=== PATIENT | male | born 1985 ===

== ENCOUNTER 2020-03-01 21:07 | Emergency (ER) | payer SELFPAY ==
--- NOTE | 2020-03-01 23:41 | ER ---
Nurse's Notes [facility] Name: Justin Garcia Age: 34 yrs Sex: Male : 1985 Arrival Date: 03/01/2020 Time: 21:10 Bed 14 Private MD: Diagnosis: Otitis media, unspecified, left ear Presentation: 03/01 21:20 Method Of Arrival: Ambulatory jb4 21:20 Chief complaint: Patient states: I have headache on the left side of my head that has jb4 been there for 7 days and has been getting worse. It radiates down to the left side of my neck. I have had one like this before in the past. Coronavirus screen: Client denies travel out of the [place] in the last 14 days. At this time, the client does not indicate any symptoms associated with coronavirus-19. Ebola Screen: No symptoms or risks identified at this time. Initial Sepsis Screen: Does the patient meet any 2 criteria? No. Patient's initial sepsis screen is negative. Does the patient have a suspected source of infection? No. Patient's initial sepsis screen is negative. Risk Assessment: Do you want to hurt yourself or someone else? Patient reports no desire to harm self or others. Onset of symptoms was February 23, 2020. Transition of care: patient was not received from another setting of care. 21:20 Acuity: RAKESH 4 jb4 Historical: - Allergies: 21:20 No Known Allergies; jb4 - Home Meds: 21:20 None [Active]; jb4 - PMHx: 21:20 None; jb4 - PSHx: 21:20 None; jb4 - Immunization history:: Adult Immunizations up to date. - Social history:: Smoking status: Patient reports the use of cigarette tobacco products, 7 cigarettes . Screenin:20 Abuse screen: Denies threats or abuse. Nutritional screening: No deficits noted. jb4 Tuberculosis screening: No symptoms or risk factors identified. Fall Risk None identified. Assessment: 21:20 General: Appears in no apparent distress. uncomfortable, Behavior is calm, cooperative, jb4 appropriate for age. Pain: Complains of pain in left side of head Pain radiates to left side of neck Pain currently is 5 out of 10 on a pain scale. Quality of pain is described as pulsating, Pain began 7 days ago Is continuous. Neuro: Level of Consciousness is awake, alert, obeys commands, Oriented to person, place, time, situation. Cardiovascular: Patient's skin is warm and dry. Respiratory: Airway is patent Respiratory effort is even, unlabored, Respiratory pattern is regular, symmetrical. GI: No signs and/or symptoms were reported involving the gastrointestinal system. : No signs and/or symptoms were reported regarding the genitourinary system. EENT: No signs and/or symptoms were reported regarding the EENT system. Derm: Skin is intact, Skin is pink, warm \T\ dry. Musculoskeletal: Circulation, motion, and sensation intact. Range of motion: intact in all extremities. 22:45 Reassessment: Patient and/or family updated on plan of care and expected duration. Pain jb4 level reassessed. Patient is alert, oriented x 3, equal unlabored respirations, skin warm/dry/pink. Pt is resting comfortably in bed with the lights off using his cell phone. no s/s of pain or distress noted. 23:45 Reassessment: Patient appears in no apparent distress at this time. Patient and/or jb4 family updated on plan of care and expected duration. Pain level reassessed. Patient is alert, oriented x 3, equal unlabored respirations, skin warm/dry/pink. Vital Signs: 21:20 BP 130 / 97; Pulse 66; Resp 16; Temp 98.7(O); Pulse Ox 100% on R/A; Weight 72.57 kg jb4 (R); Height 5 ft. 0 in. (152.40 cm) (R); Pain 5/10; 22:45 BP 113 / 69; Pulse 52; Resp 16; Pulse Ox 100% on R/A; jb4 21:20 Body Mass Index 31.25 (72.57 kg, 152.40 cm) jb4 ED Course: 21:10 Patient arrived in ED. cl3 21:19 Maggie Wilder [facility]NP-C [facility]. kb 21:19 Sami Turk MD is Attending Physician. kb 21:20 Arm band placed on right wrist. jb4 21:20 Patient has correct armband on for positive identification. Bed in low position. Call jb4 light in reach. Side rails up X 1. Pulse ox on. NIBP on. 22:00 Levon, Bryon, RN is Primary Nurse. jb4 22:02 Triage completed. 4 22:06 CT Head Brain wo Cont In Process Unspecified. EDMS 23:45 No provider procedures requiring assistance completed. Patient did not have IV access [facility] during this emergency room visit. Administered Medications: No medications were administered Outcome: 23:40 Discharge ordered by . milla 23:45 Discharged to home ambulatory. [facility] 23:45 Condition: stable 23:45 Discharge instructions given to patient, Instructed on discharge instructions, follow up and referral plans. medication usage, Demonstrated understanding of instructions, follow-up care, medications, Prescriptions given X 1. 23:58 Patient left the ED. [facility] Signatures: Dispatcher [employer] EDMS Maggie Wilder, DEYANIRA-C PRESCRIPTION BENEFIT SPECIALIST-Bryon Boyer RN RN mukesh Nathan Nunez cl3 Corrections: (The following items were deleted from the chart) 22:03 22:00 Chief complaint: Patient states: I have headache on the left side of my head that [facility] has been there for 7 days and has been getting worse. It radiates down to the left side of my neck. I have had one like this before in the past. [facility] 22: 22:00 Coronavirus screen: Client denies travel out of the [place] in the last 14 days. At [facility] this time, the client does not indicate any symptoms associated with coronavirus-19. [facility] 22: 22:00 Ebola Screen: No symptoms or risks identified at this time. [place] [id number] 22: 22:00 Initial Sepsis Screen: Does the patient meet any 2 criteria? No. Patient's [facility] initial sepsis screen is negative. Does the patient have a suspected source of infection? No. Patient's initial sepsis screen is negative. [facility] 22: 22:00 Risk Assessment: Do you want to hurt yourself or someone else? Patient reports no [facility] desire to harm self or others. [facility] : 22:00 Onset of symptoms was February 23, 2020 [place] [id number] : 22:00 Transition of care: patient was not received from another setting of care. [place] [id number] : 22:00 Method Of Arrival: Ambulatory [place] [address] 22: 22:00 BP 130 / 97; Pulse 66bpm; Resp 16bpm; Pulse Ox 100% RA; Temp 98.7F Oral; 72.57 kg jb4 Reported; Height 5 ft. 0 in. Reported; BMI: 31.2; Pain 5/10; jb4 22:03 22:00 Acuity: RAKESH 4 jb4 jb4
--- NOTE | 2020-03-01 23:41 | EDPHYS ---
Physician Documentation [facility] Name: Justin Garcia Age: 34 yrs Sex: Male : 1985 Arrival Date: 03/01/2020 Time: 21:10 Bed 14 Private MD: [facility] Physician Sami Turk HPI: 03/01 23:34 This 34 yrs old Male presents to ER via Ambulatory with complaints of Headache. kb 23:39 The patient complains of pain to the left temporal area, left ear and left base of the kb skull. The patient describes the headache as constant, throbbing. Onset: The symptoms/episode began/occurred 7 day(s) ago. Associated signs and symptoms: The patient has no apparent associated signs or symptoms. Severity of symptoms: At its worst the pain was moderate, in the emergency department the pain is unchanged. Headache History: Denies prior headaches. The symptoms are alleviated by nothing. the symptoms are aggravated by palpation. The patient has not experienced similar symptoms in the past. The patient has not recently seen a physician. Pt reports pain to left side of head that started 7 days ago. Denies any other symptoms. . Historical: - Allergies: 21:20 No Known Allergies; jb4 - Home Meds: 21:20 None [Active]; jb4 - PMHx: 21:20 None; jb4 - PSHx: 21:20 None; jb4 - Immunization history:: Adult Immunizations up to date. - Social history:: Smoking status: Patient reports the use of cigarette tobacco products, 7 cigarettes . ROS: 23:28 Constitutional: Negative for fever, chills, and weight loss, ENT: Negative for injury, kb pain, and discharge, Neck: Negative for injury, pain, and swelling, Cardiovascular: Negative for chest pain, palpitations, and edema, Respiratory: Negative for shortness of breath, cough, wheezing, and pleuritic chest pain, Abdomen/GI: Negative for abdominal pain, nausea, vomiting, diarrhea, and constipation, Back: Negative for injury and pain, MS/Extremity: Negative for injury and deformity, Skin: Negative for injury, rash, and discoloration. 23:28 Neuro: Positive for headache, Negative for altered mental status, dizziness, gait disturbance, hearing loss, loss of consciousness, numbness, seizure activity, speech changes, syncope, near syncope, tingling, tinnitus, tremor, visual changes, weakness. Exam: 23:31 Constitutional: This is a well developed, well nourished patient who is awake, alert, kb and in no acute distress. Head/Face: Normocephalic, atraumatic. Neck: Trachea midline, no thyromegaly or masses palpated, and no cervical lymphadenopathy. Supple, full range of motion without nuchal rigidity, or vertebral point tenderness. No Meningismus. Chest/axilla: Normal chest wall appearance and motion. Nontender with no deformity. No lesions are appreciated. Cardiovascular: Regular rate and rhythm with a normal S1 and S2. No gallops, murmurs, or rubs. Normal PMI, no JVD. No pulse deficits. Respiratory: Lungs have equal breath sounds bilaterally, clear to auscultation and percussion. No rales, rhonchi or wheezes noted. No increased work of breathing, no retractions or nasal flaring. Abdomen/GI: Soft, non-tender, with normal bowel sounds. No distension or tympany. No guarding or rebound. No evidence of tenderness throughout. Back: No spinal tenderness. No costovertebral tenderness. Full range of motion. Skin: Warm, dry with normal turgor. Normal color with no rashes, no lesions, and no evidence of cellulitis. MS/ Extremity: Pulses equal, no cyanosis. Neurovascular intact. Full, normal range of motion. Neuro: Awake and alert, GCS 15, oriented to person, place, time, and situation. Cranial nerves II-XII grossly intact. Motor strength 5/5 in all extremities. Sensory grossly intact. Cerebellar exam normal. Normal gait. 23:31 Head/face: Noted is no obvious of injury or deformity except tenderness, that is mild, of the left ear and left base of the skull. 23:31 ENT: Ear canal(s): are normal, TM's: bulging, on the left, erythema, that is moderate, on the left, fluid levels, on the left, Nose: is normal. Vital Signs: 21:20 BP 130 / 97; Pulse 66; Resp 16; Temp 98.7(O); Pulse Ox 100% on R/A; Weight 72.57 kg jb4 (R); Height 5 ft. 0 in. (152.40 cm) (R); Pain 5/10; 22:45 BP 113 / 69; Pulse 52; Resp 16; Pulse Ox 100% on R/A; jb4 21:20 Body Mass Index 31.25 (72.57 kg, 152.40 cm) jb4 MDM: 21:20 Patient medically screened. kb 23:28 Data reviewed: vital signs, nurses notes. Data interpreted: Pulse oximetry: on room air kb is 100 %. Interpretation: normal. Counseling: I had a detailed discussion with the patient and/or guardian regarding: the historical points, exam findings, and any diagnostic results supporting the discharge/admit diagnosis, radiology results, the need for outpatient follow up, a family practitioner, to return to the emergency department if symptoms worsen or persist or if there are any questions or concerns that arise at home. 03/01 21:51 Order name: CT Head Brain wo Cont kb Administered Medications: No medications were administered Disposition: 03/01/20 23:40 Discharged to Home. Impression: Otitis media, unspecified, left ear. - Condition is Stable. - Discharge Instructions: Otitis Media, Adult, [id number]. - Prescriptions for Amoxicillin 875 mg Oral Tablet - take 1 tablet by ORAL route every 12 hours for 10 days; 20 tablet. - Medication Reconciliation Form, Thank You Letter, Antibiotic Education, Prescription Opioid Use form. - Follow up: Emergency Department; When: As needed; Reason: Worsening of condition. Follow up: Private Physician; When: 2 - 3 days; Reason: Recheck today's complaints, Continuance of care, Re-evaluation by your physician. Addendum: 03/03/2020 08:48 Co-signature as Attending Physician, Sami Turk MD I agree with the assessment and c reeves plan of care. Signatures: Dispatcher [employer] EDMaggie Arteaga, LOCOMOTIVE ENGINEER DIESEL-C LOCOMOTIVE ENGINEER DIESEL-Ckb Sami Turk MD MD cha Bryson, James, RN RN jb4 Corrections: (The following items were deleted from the chart) 03/01 23:34 23:31 ENT: External ear(s): are unremarkable, Ear canal(s): are normal, TM's: bulging, kb on the left, erythema, that is moderate, on the left, fluid levels, on the left, Nose: is normal, kb 23:58 23:40 03/01/2020 23:40 Discharged to Home. Impression: Otitis media, unspecified, left jb4 ear. Condition is Stable. Forms are Medication Reconciliation Form, Thank You Letter, Antibiotic Education, Prescription Opioid Use. Follow up: Emergency Department; When: As needed; Reason: Worsening of condition. Follow up: Private Physician; When: 2 - 3 days; Reason: Recheck today's complaints, Continuance of care, Re-evaluation by your physician. kb
--- NOTE | 2020-03-04 12:38 | RAD REPORT ---
EXAM DESCRIPTION: CT - Head Brain Wo Cont - 03/01/2020 10:06 pm CLINICAL HISTORY: Posterior left parietal headache. Evaluate for mastoiditis. COMPARISON: None. TECHNIQUE: CT scan of the brain was performed without IV contrast. This exam was performed accordi ng to our departmental dose-optimization program, which includes automated exposure control, adjustme nt of the mA and/or kV according to patient size and/or use of iterative reconstruction technique. FINDINGS: The ventricles, cisterns, and sulci are age-appropriate. No evidence of acute infarction, intracranial hemorrhage, extra-axial fluid collection, or midline shift. No air-fluid levels are seen in the paranasal sinuses to suggest acute sinusitis. The mastoid air cells are also clear. No depres sed skull fracture. IMPRESSION: 1. No acute intracranial hemorrhage. 2. Sinuses and mastoid air cells are clear. Electronically signed by: Misael Javed MD 03/01/2020 10:21 PM CDT Due to temporary technical issues with the PACS/Fluency reporting system, reports are being signed by the in house radiologist without review as a courtesy to ensure prompt reporting. The interpreting r adiologist is fully responsible for the content of the report.
[2020-03-05 17:24] VITALS: TEMP 98.7; O2SAT 100
[2020-03-05 17:25] VITALS: BP 113/69
== END 2020-03-01 23:58 | disposition home or self-care (01) ==
LOC: ER 21:07
DX: H66.92 Otitis media, unspecified, left ear (principal); F17.210 Nicotine dependence, cigarettes, uncomplicated
CPT/HCPCS: 70450; 99283

== ENCOUNTER 2020-03-07 20:48 | Emergency (ER) | payer SELFPAY ==
[2020-03-07 21:55] LABS: Urine Blood NEGATIVE (NEG); Urine Glucose NEGATIVE (NEG); Urine Protein NEGATIVE (NEG); Urine Specific Gravity <1.005 (1.005-1.030)
[2020-03-07 22:02] LABS: Absolute Lymphocytes (CBC) 3.7 K/uL (0.7-4.9); Basophils % 1.5 % (0-1.3); Hematocrit 46.5 % (39.6-49.0); Lymphocytes % 38.3 % (15.3-44.8); MPV 8.1 fL (7.6-11.3); RBC Red Blood Cell Count 5.05 M/uL (4.33-5.43)
[2020-03-07] MEDS ORDERED: KETOROLAC 30 MG/ML INJ ONE (22:02)
[2020-03-07 22:03] LABS: Urine Bacteria NONE SEEN /HPF (NONE SEEN); Urine Culture Reflex Order NOT NEEDED; Urine RBC NONE SEEN /HPF (NONE SEEN)
[2020-03-07 22:16] LABS: Bilirubin Direct 0.1 mg/dL (0-0.2); Bilirubin Total 0.5 mg/dL (0.2-1.0); Potassium 3.8 mmol/L (3.5-5.1); Protein, Total 7.4 g/dL (6.4-8.2)
--- NOTE | 2020-03-07 22:46 | ER ---
Nurse's Notes [facility] Name: Justin Garcia Age: 34 yrs Sex: Male : 1985 Arrival Date: 03/07/2020 Time: 20:50 Bed 6 Private MD: Diagnosis: Low back pain Presentation: 03/07 20:59 Chief complaint: Patient states: Left lower back pain for 3 months, worse sine ll1 yesterday. No known falls or trauma. No dysuria or fever. Coronavirus screen: Client denies travel out of the [place] in the last 14 days. At this time, the client does not indicate any symptoms associated with coronavirus-19. Ebola Screen: Patient denies travel to an Ebola-affected area in the 21 days before illness onset. Initial Sepsis Screen: Does the patient meet any 2 criteria? No. Patient's initial sepsis screen is negative. Risk Assessment: Do you want to hurt yourself or someone else? Patient reports no desire to harm self or others. Onset of symptoms was December 06, 2019. 20:59 Method Of Arrival: Ambulatory ll1 20:59 Acuity: RAKESH 4 ll1 21:57 Initial Sepsis Screen: Does the patient have a suspected source of infection? No. wh Patient's initial sepsis screen is negative. Historical: - Allergies: 21:01 No Known Allergies; ll1 - PSHx: 21:01 None; ll1 - Immunization history:: Flu vaccine is not up to date. - Social history:: Smoking status: Patient reports the use of cigarette tobacco products, smokes one-half pack cigarettes per day, Patient/guardian denies using alcohol, street drugs. Screenin:57 Abuse screen: Denies threats or abuse. Denies injuries from another. Nutritional screening: No deficits noted. Tuberculosis screening: No symptoms or risk factors identified. Fall Risk None identified. Assessment: 21:55 General: Appears in no apparent distress. Behavior is calm, cooperative, appropriate for age. Pain: Complains of pain in left mid back and left low back Pain does not radiate. Pain currently is 6 out of 10 on a pain scale. Quality of pain is described as sharp, Pain began 3 months ago Is episodic. Neuro: Level of Consciousness is awake, alert, obeys commands, Oriented to person, place, time, situation, Appropriate for age. Cardiovascular: Capillary refill < 3 seconds. Respiratory: Airway is patent Respiratory effort is even, unlabored, Respiratory pattern is regular, symmetrical. GI: Abdomen is flat, non-distended. : No signs and/or symptoms were reported regarding the genitourinary system. EENT: No signs and/or symptoms were reported regarding the EENT system. Derm: Skin is intact, is healthy with good turgor, Skin is pink, warm \T\ dry. normal. Musculoskeletal: Circulation, motion, and sensation intact. 22:55 Reassessment: Patient appears in no apparent distress at this time. No changes from previously documented assessment. Patient and/or family updated on plan of care and expected duration. Pain level reassessed. Patient is alert, oriented x 3, equal unlabored respirations, skin warm/dry/pink. Patient states feeling better. Patient states symptoms have improved. Vital Signs: 20:59 BP 113 / 81; Pulse 80; Resp 17; Temp 98.8; Pulse Ox 100% ; Pain 8/10; ll1 21:57 BP 111 / 75; Pulse 62; Resp 18; Pulse Ox 100% on R/A; wh 22:45 BP 114 / 80; Pulse 64; Resp 18; Pulse Ox 99% on R/A; ED Course: 20:50 Patient arrived in ED. cl3 21:00 Triage completed. ll1 21:01 Arm band placed on Patient placed in an exam room, on a stretcher. ll1 21:21 Magaly Powell is Primary Nurse. 21:27 Sami Harmon PA is PHCP. cp 21:27 Atif Wang MD is Attending Physician. cp 21:40 Inserted saline lock: 20 gauge in right antecubital area, using aseptic technique. Blood collected. 21:57 Patient has correct armband on for positive identification. Bed in low position. Call light in reach. Side rails up X 1. Pulse ox on. NIBP on. 22:15 CT Stone Protocol In Process Unspecified. EDMS 22:59 No provider procedures requiring assistance completed. IV discontinued, intact, bleeding controlled, No redness/swelling at site. Administered Medications: 21:55 Drug: TORadol - Ketorolac 15 mg Route: IVP; Site: right antecubital; 22:59 Follow up: Response: No adverse reaction; Pain is decreased Outcome: 22:46 Discharge ordered by . allie 22:59 Discharged to home ambulatory. 22:59 Condition: stable 22:59 Discharge instructions given to patient, Instructed on discharge instructions, follow up and referral plans. no drinking with medication, no driving heavy equipment, medication usage, POC Demonstrated understanding of instructions, follow-up care, medications, POC Prescriptions given X 3. 23:00 Patient left the ED. Signatures: Dispatcher [employer] EDMS Sami Harmon PA PA cp Habalo, Winsy Nathan Nunez cl3 Murali Nunez, RN RN ll1
--- NOTE | 2020-03-07 22:46 | EDPHYS ---
Physician Documentation [facility] Name: Justin Garcia Age: 34 yrs Sex: Male : 1985 Arrival Date: 03/07/2020 Time: 20:50 Bed 6 Private MD: ED Physician Atif Wang HPI: 03/07 21:54 This 34 yrs old Male presents to ER via Ambulatory with complaints of Back Pain. cp 21:54 The patient complains of pain in the left low back and left mid back. The pain does not cp radiate. Onset: The symptoms/episode began/occurred yesterday. Associated signs and symptoms: Pertinent negatives: diarrhea, dysuria, fever, vomiting. Severity of pain: in the emergency department the pain is unchanged despite home interventions. Historical: - Allergies: 21:01 No Known Allergies; ll1 - PSHx: 21:01 None; ll1 - Immunization history:: Flu vaccine is not up to date. - Social history:: Smoking status: Patient reports the use of cigarette tobacco products, smokes one-half pack cigarettes per day, Patient/guardian denies using alcohol, street drugs. ROS: 21:55 Eyes: Negative for injury, pain, redness, and discharge. cp 21:55 Constitutional: Negative for body aches, chills, fever, poor PO intake. 21:55 Neck: Negative for pain with movement, pain at rest, stiffness. 21:55 Cardiovascular: Negative for chest pain. 21:55 Respiratory: Negative for cough. 21:55 Abdomen/GI: Negative for abdominal pain, nausea, vomiting, and diarrhea. 21:55 Back: Positive for flank pain, on the left, Negative for injury or acute deformity, decreased range of motion. 21:55 : Negative for urinary symptoms, pelvic pain, testicular pain 21:55 Neuro: Negative for altered mental status, headache, weakness. 21:55 All other systems are negative. Exam: 21:56 Head/Face: Normocephalic, atraumatic. cp 21:56 Constitutional: The patient appears in no acute distress, alert, awake, non-toxic, well developed, well nourished. 21:56 Eyes: Periorbital structures: appear normal, Conjunctiva: normal, no exudate, no injection, Sclera: no appreciated abnormality, Lids and lashes: appear normal, bilaterally. 21:56 ENT: External ear(s): are unremarkable, Nose: is normal, Posterior pharynx: Airway: no evidence of obstruction, patent. 21:56 Neck: ROM/movement: is normal, is supple, without pain, no range of motions limitations. 21:56 Chest/axilla: Inspection: normal. 21:56 Cardiovascular: Rate: normal, Rhythm: regular. 21:56 Respiratory: the patient does not display signs of respiratory distress, Respirations: normal, no use of accessory muscles, no retractions, labored breathing, is not present, Breath sounds: are clear throughout, no decreased breath sounds. 21:56 Abdomen/GI: Inspection: abdomen appears normal, Palpation: abdomen is soft and non-tender, in all quadrants. 21:56 Back: pain, that is moderate, of the left low back and left mid back, ROM is painful, with all movement. 21:56 Neuro: Orientation: is normal, Mentation: is normal, Motor: moves all fours, strength is normal, Sensation: is normal, Gait: is steady, Deep tendon reflexes are 2+ (normal) in the right patellar, right Achilles, left patellar and left Achilles. Vital Signs: 20:59 BP 113 / 81; Pulse 80; Resp 17; Temp 98.8; Pulse Ox 100% ; Pain 8/10; ll1 21:57 BP 111 / 75; Pulse 62; Resp 18; Pulse Ox 100% on R/A; wh 22:45 BP 114 / 80; Pulse 64; Resp 18; Pulse Ox 99% on R/A; wh MDM: 21:29 Patient medically screened. cp 22:00 Differential diagnosis: nephrolithiasis, pyelonephritis, UTI, sciatica. cp 22:45 Data reviewed: vital signs, nurses notes, lab test result(s), radiologic studies, CT cp scan. 22:45 Counseling: I had a detailed discussion with the patient and/or guardian regarding: the cp historical points, exam findings, and any diagnostic results supporting the discharge/admit diagnosis, lab results, radiology results, the need for outpatient follow up, a family practitioner, to return to the emergency department if symptoms worsen or persist or if there are any questions or concerns that arise at home. Response to treatment: Pain improved. CT results negative for kidney and/or renal calculi, and as a result, I will discharge patient. 22:51 ED course: no active prescriptions for narcotic pain medications noted on [facility] prescription monitor website. 03/07 21:28 Order name: Urine Dipstick--Ancillary (enter results); Complete Time: 22:34 mw2 03/07 21:39 Order name: Basic Metabolic Panel; Complete Time: 22:34 03/07 22:34 Interpretation: Normal except: BUN 22; GFR 78. 03/07 21:39 Order name: CBC with Diff; Complete Time: 22:34 03/07 22:34 Interpretation: Normal except: EOSINOPHIL % 7.5; BASO% 1.5; EOSA 0.7. 03/07 21:39 Order name: Hepatic Function; Complete Time: 22:34 03/07 21:39 Order name: Lipase; Complete Time: 22:34 03/07 21:39 Order name: IV Saline Lock; Complete Time: 21:55 03/07 21:39 Order name: Labs collected and sent; Complete Time: 21:55 03/07 21:39 Order name: CT Stone Protocol 03/07 21:39 Order name: Urine Microscopic Only; Complete Time: 22:34 03/07 22:34 Interpretation: Reviewed. Administered Medications: 21:55 Drug: TORadol - Ketorolac 15 mg Route: IVP; Site: right antecubital; 22:59 Follow up: Response: No adverse reaction; Pain is decreased Disposition: 03/08 00:04 Co-signature as Attending Physician, Atif Wang MD. pkl Disposition: 03/07/20 22:46 Discharged to Home. Impression: Low back pain. - Condition is Stable. - Discharge Instructions: Back Pain, Adult, Heat Therapy, Back Exercises. - Prescriptions for Cyclobenzaprine 10 mg Oral Tablet - take 1 tablet by ORAL route every 8 hours As needed no driving while taking medication; 20 tablet. Diclofenac Sodium 75 mg Oral Tablet, Delayed Release (E.C.) - take 1 tablet by ORAL route 2 times per day; 20 tablet. Tramadol 50 mg Oral Tablet - take 1 tablet by ORAL route every 8 hours as needed. No driving while taking medication; 12 tablet. - Medication Reconciliation Form, Thank You Letter, Antibiotic Education, Prescription Opioid Use form. - Follow up: Private Physician; When: 2 - 3 days; Reason: Worsening of condition. - Problem is new. - Symptoms have improved. Signatures: Dispatcher [employer] EDMS Atif Wang MD MD pkl Sami Harmon PA PA cp Habalo, Winsy wh Lewis, Lynsay RN RN ll1 Corrections: (The following items were deleted from the chart) 03/07 21:54 21:22 URINALYSIS+[id number].LAB.BRZ ordered. EDMS EDMS 22:34 22:34 Normal except: EOSINOPHIL % 7.5; BASO% 1.5. cp cp 23:00 22:46 03/07/2020 22:46 Discharged to Home. Impression: Low back pain. Condition is wh Stable. Forms are Medication Reconciliation Form, Thank You Letter, Antibiotic Education, Prescription Opioid Use. Follow up: Private Physician; When: 2 - 3 days; Reason: Worsening of condition. Problem is new. Symptoms have improved. cp
--- NOTE | 2020-03-08 09:53 | RAD REPORT ---
EXAM DESCRIPTION: Stone Protocol CLINICAL HISTORY: 34 years Male left flank pain COMPARISON: None. TECHNIQUE: Contiguous axial images obtained through the abdomen and pelvis without IV contrast. Refo rmatted images obtained. This exam was performed according to our department optimization program which includes automated exp osure control, adjustment of the mA and/or kv according to patient size and/or use of iterative recon struction technique. FINDINGS: The study is suboptimal from motion. The lung bases are clear. The liver appears unremarkable. The spleen and pancreas appear unremarkable. No adrenal masses. The kidneys appear unremarkable. No hydronephrosis or definite ureteral calculi. The gallbladder is visualized. No aneurysmal dilatation of the aorta. The colon is slightly distended with stool which could be from constipation. No bowel obstruction. Th e appendix appears unremarkable. No significant free pelvic fluid. Small fat-containing umbilical hernia. IMPRESSION: The study is suboptimal from motion. The colon is slightly distended with stool which could be from constipation. No hydronephrosis or definite ureteral calculi are identified. Electronically signed by: John Rapp MD 03/07/2020 10:36 PM CDT Due to temporary technical issues with the PACS/Fluency reporting system, reports are being signed by the in house radiologist without review as a courtesy to ensure prompt reporting. The interpreting r adiologist is fully responsible for the content of the report.
[2020-03-09 12:53] VITALS: TEMP 98.8
[2020-03-09 12:56] VITALS: BP 114/80; O2SAT 99
== END 2020-03-07 23:00 | disposition home or self-care (01) ==
LOC: ER 20:48
DX: M54.5 Low back pain (principal); F17.210 Nicotine dependence, cigarettes, uncomplicated
CPT/HCPCS: 36415; 74176; 76377; 80048; 80076; 81003; 81015; 83690; 85025; 96374; 99284